=== PATIENT | male | born 1965 | race Two or more races ===

== ENCOUNTER 2017-04-10 11:07 | Emergency (ER) | payer MEDICAID ==
[~2017-04-10] VITALS: Ht 175.3 cm; Wt 74.0 kg
[2017-04-10] MEDS: KETOROLAC 60MG/2ML VIAL IM ONE (13:00)
[2017-04-10 14:10] VITALS: BP 138/84
== END 2017-04-10 13:43 | disposition home or self-care (01) ==
LOC: ER 13:02
DX: S46.912A Strain of unspecified muscle, fascia and tendon at shoulder and upper arm level, left arm, initial encounter (principal); R51 Headache; F17.210 Nicotine dependence, cigarettes, uncomplicated; V43.52XA Car driver injured in collision with other type car in traffic accident, initial encounter; Y93.89 Activity, other specified; Y92.488 Other paved roadways as the place of occurrence of the external cause
CPT/HCPCS: 73030; 96372; 99285; J1885

== ENCOUNTER 2017-05-01 10:51 | Emergency (ER) | payer MEDICAID ==
[~2017-05-01] VITALS: Ht 175.3 cm; Wt 77.0 kg
[2017-05-01] MEDS ORDERED: KETOROLAC 30MG/ML VIAL IM ONE (11:45)
[2017-05-01 12:05] VITALS: BP 133/82
== END 2017-05-01 12:25 | disposition home or self-care (01) ==
LOC: ER 11:49
DX: S99.911A Unspecified injury of right ankle, initial encounter (principal); V89.2XXA Person injured in unspecified motor-vehicle accident, traffic, initial encounter; Y93.9 Activity, unspecified; Y92.410 Unspecified street and highway as the place of occurrence of the external cause
CPT/HCPCS: 73610; 73630; 96372; 99284; J1885

== ENCOUNTER 2017-07-23 23:31 | Emergency (ER) | payer MEDICAID ==
[~2017-07-23] VITALS: Ht 175.3 cm; Wt 73.0 kg
[2017-07-24] MEDS ORDERED: ONDANSETRON HCL 4MG/2ML VIAL IV STA (01:02)
[2017-07-24] MEDS ORDERED: SODIUM CHLORIDE 0.9% 1,000 ML IV ONE (01:02)
[2017-07-24] MEDS ORDERED: ASPIRIN 325MG TABLET PO ONE (01:15)
[2017-07-24 01:23] LABS: BASOPHILS % 0.7 % (0.0-2.0); EOSINOPHILS % 0.3 % (0.0-5.0); HEMOGLOBIN. 15.1 g/dL (14.0-18.0); LYMPHOCYTES % 15.7 % (20.0-50.0); MEAN CORPUSCULAR HEMOGLOBIN 28.7 pg (28.0-32.0); MEAN CORPUSCULAR VOLUME 87.3 fL (80.0-94.0); MEAN PLATELET VOLUME 8.9 fl (7.4-10.4); MONOCYTES % 11.6 % (2.0-8.0); NEUTROPHILS % 71.7 % (40.0-76.0); PLATELET 256 x1000/uL (130-400); RED BLOOD CELL COUNT 5.27 mill/uL (4.7-6.1)
[2017-07-24 01:30] LABS: INR 1.1; PROTHROMBIN TIME 11.8 sec (9.4-11.6)
[2017-07-24 01:40] LABS: CARBON DIOXIDE 26 mEq/L (21-32); CHLORIDE 106 mEq/L (98-107); TROPONIN I < 0.02 ng/mL (0.00-0.04)
[2017-07-24] MEDS ORDERED: POTASSIUM CHLORIDE 20MEQ TABLET SR PO ONE (03:45)
[2017-07-24] MEDS ORDERED: ENOXAPARIN 80MG/0.8ML SYR SUBCUT SCH (04:30)
[2017-07-24] MEDS ORDERED: ONDANSETRON HCL 4MG/2ML VIAL IV ONE (04:45)
[2017-07-24] MEDS ORDERED: MORPHINE SULFATE 4 MG/ML CPJ (NOT FOR IM USE) IV ONE (04:45)
[2017-07-24 06:37] VITALS: BP 118/58
== END 2017-07-24 09:15 | disposition left against medical advice (07) ==
LOC: ER 23:31 → ENRESERV 07-24 07:40 → CANRESERV 07-24 07:40 → CANBEDREQ 07-24 08:53 → ER 07-24 09:15
DX: I24.9 Acute ischemic heart disease, unspecified (principal); E87.6 Hypokalemia; I10 Essential (primary) hypertension; I25.2 Old myocardial infarction; F17.200 Nicotine dependence, unspecified, uncomplicated; Z98.890 Other specified postprocedural states; Z79.82 Long term (current) use of aspirin
CPT/HCPCS: 36415; 71045; 80053; 83880; 84484; 85025; 85610; 87804; 93005; 96361; 96372; 96374; 96376; 99285; J1650; J2270; J2405; J7030; Z7610

== ENCOUNTER 2019-08-11 20:33 | Emergency (ER) | payer MEDICAID ==
[~2019-08-11] VITALS: Ht 175.3 cm; Wt 77.0 kg
[2019-08-11 21:32] VITALS: BP 120/83
== END 2019-08-11 21:50 | disposition left against medical advice (07) ==
LOC: ER 20:33
DX: Z53.21 Procedure and treatment not carried out due to patient leaving prior to being seen by health care provider (principal)

== ENCOUNTER 2019-10-29 01:58 | Inpatient (IN) | payer MEDICAID ==
[~2019-10-29] VITALS: Ht 175.3 cm; Wt 74.0 kg
[2019-10-29] MEDS ORDERED: NITROGLYCERIN 0.4MG TABLET SL SL ONE (02:45)
[2019-10-29 02:52] LABS: EOSINOPHILS % 3.9 % (0.0-5.0); HEMATOCRIT. 39.4 % (42.0-52.0); HEMOGLOBIN. 13.3 g/dL (14.0-18.0); LYMPHOCYTES % 37.2 % (20.0-50.0); MEAN CORPUSCULAR HEMOGLOBIN 29.8 pg (28.0-32.0); MEAN CORPUSCULAR VOLUME 88.4 fL (80.0-94.0); MEAN PLATELET VOLUME 9.6 fl (7.4-10.4); MONOCYTES % 8.1 % (2.0-8.0); NEUTROPHILS % 48.8 % (40.0-76.0); PLATELET 162 x1000/uL (130-400); RED BLOOD CELL COUNT 4.45 mill/uL (4.7-6.1); RED CELL DISTRIBUTION WIDTH 14.6 % (11.6-14.6)
[2019-10-29 02:55] LABS: CHLORIDE 108 mEq/L (98-107)
[2019-10-29] MEDS ORDERED: ACETAMINOPHEN 500MG TABLET PO ONE (03:30)
[2019-10-29] MEDS ORDERED: ONDANSETRON HCL 4MG/2ML INJ IV NR (03:45)
[2019-10-29] MEDS ORDERED: MORPHINE SULFATE 4 MG/ML CPJ (NOT FOR IM USE) IV NR (03:45)
[2019-10-29] MEDS ORDERED: ENOXAPARIN 80MG/0.8ML SYR SUBCUT SCH ×2 (04:00→05:30)
[2019-10-29 04:27] LABS: PARTIAL THROMBOPLASTIN TIME 24.8 sec (23.4-31.0)
[2019-10-29] MEDS: ASPIRIN 81MG TABLET PO SCH (15:05)
[2019-10-29] MEDS: CLOPIDOGREL 75MG TABLET PO SCH (15:05)
[2019-10-29 15:22] LABS: *AMPHETAMINES SCREEN URINE NEGATIVE (NEGATIVE); *BARBITURATES SCREEN URINE NEGATIVE (NEGATIVE); *BENZODIAZEPINES SCREEN URINE NEGATIVE (NEGATIVE); *COCAINE SCREEN URINE NEGATIVE (NEGATIVE); METHADONE URINE SCREEN NEGATIVE (NEGATIVE); OPIATES URINE SCREEN NEGATIVE (NEGATIVE); PHENCYCLIDINE URINE SCREEN NEGATIVE (NEGATIVE)
[2019-10-29 15:23] LABS: CANNABINOID URINE SCREEN PRESUMTIVE POSITIVE (NEGATIVE)
[2019-10-29 22:41] VITALS: BP 117/74
[2019-10-29 23:00] VITALS: BP 117/74
[2019-10-30] VITALS: BP 117/74
[2019-10-30] MEDS ORDERED: ATOR20TA65 MT (00:23)
[2019-10-30] MEDS ORDERED: ASPI-1497 MT (00:23)
[2019-10-30] MEDS ORDERED: CLOP75TA33 MT (00:23)
[2019-10-30] MEDS ORDERED: LISI10TA5 MT (00:23)
[2019-10-30 04:00] VITALS: BP 114/70
[2019-10-30] MEDS ORDERED: SODIUM CHLORIDE 0.9% 500 ML IV ONE (06:00)
[2019-10-30 06:12] LABS: BASOPHILS % 0.2 % (0.0-2.0); EOSINOPHILS % 4.7 % (0.0-5.0); HEMATOCRIT. 42.5 % (42.0-52.0); HEMOGLOBIN. 14.1 g/dL (14.0-18.0); LYMPHOCYTES % 43.6 % (20.0-50.0); MEAN CORPUSCULAR HEMOGLOBIN 29.6 pg (28.0-32.0); MEAN CORPUSCULAR VOLUME 89.2 fL (80.0-94.0); MEAN PLATELET VOLUME 10.3 fl (7.4-10.4); MONOCYTES % 10.9 % (2.0-8.0); NEUTROPHILS % 40.6 % (40.0-76.0); PLATELET 169 x1000/uL (130-400); RED BLOOD CELL COUNT 4.76 mill/uL (4.7-6.1)
[2019-10-30 06:55] LABS: VITAMIN B12 SERUM 540 pg/mL (211-911)
[2019-10-30 07:02] LABS: CHLORIDE 109 mEq/L (98-107)
[2019-10-30 07:08] LABS: TOTAL IRON BINDING CAPACITY 265 ug/dL (250-450)
[2019-10-30 07:11] LABS: T4 FREE 0.73 ng/dL (0.76-1.46)
[2019-10-30 08:00] VITALS: BP 121/73
[2019-10-30] MEDS: ASPIRIN 81MG TABLET PO SCH (10:34)
[2019-10-30] MEDS: CLOPIDOGREL 75MG TABLET PO SCH (10:34)
[2019-10-30 12:00] VITALS: BP 120/64
[2019-10-30] MEDS ORDERED: MORPHINE SULFATE 2 MG/ML CPJ (NOT FOR IM USE) IV PRN (12:30)
[2019-10-30 16:00] VITALS: BP 119/29
[2019-10-30 20:00] VITALS: BP 132/58
[2019-10-31] VITALS: BP 117/73
[2019-10-31 04:00] VITALS: BP 119/80
[2019-10-31 05:09] LABS: CHLORIDE 110 mEq/L (98-107)
[2019-10-31 05:47] LABS: BASOPHILS % 1.2 % (0.0-2.0); EOSINOPHILS % 5.1 % (0.0-5.0); HEMATOCRIT. 42.2 % (42.0-52.0); LYMPHOCYTES % 46.9 % (20.0-50.0); MEAN CORPUSCULAR HEMOGLOBIN 29.6 pg (28.0-32.0); MEAN CORPUSCULAR VOLUME 89.5 fL (80.0-94.0); MEAN PLATELET VOLUME 9.8 fl (7.4-10.4); MONOCYTES % 9.7 % (2.0-8.0); NEUTROPHILS % 37.1 % (40.0-76.0); PLATELET 158 x1000/uL (130-400); RED BLOOD CELL COUNT 4.72 mill/uL (4.7-6.1); RED CELL DISTRIBUTION WIDTH 15.1 % (11.6-14.6)
[2019-10-31] MEDS ORDERED: SODIUM CHLORIDE 0.45% 1,000 ML IV SCH (06:00)
[2019-10-31 08:00] VITALS: BP 120/78
[2019-10-31] MEDS: CLOPIDOGREL 75MG TABLET PO SCH (08:56)
[2019-10-31] MEDS: ASPIRIN 81MG TABLET PO SCH (08:56)
[2019-10-31] MEDS ORDERED: HEPARIN SODIUM 1,000 UNIT/1ML VIAL IV ONE (10:36)
[2019-10-31] MEDS ORDERED: NICARDIPINE 100MCG/ML 10ML VIAL (CATH LAB) IV ONE ×2 (10:36)
[2019-10-31 12:00] VITALS: BP 122/72
[2019-10-31] MEDS ORDERED: ASPIRIN/SOD BICARB/CITRIC ACID 324MG TAB EFF ONE (13:00)
[2019-10-31] MEDS ORDERED: LIDOCAINE HCL 1% 20ML VIAL (Pyxis) INJ ONE (13:07)
[2019-10-31] MEDS ORDERED: FENTANYL CITRATE/PF 50MCG/ML 2ML VIAL ONE (13:07)
[2019-10-31] MEDS ORDERED: MIDAZOLAM HCL 2 MG/2 ML VIAL ONE (13:07)
[2019-10-31] MEDS ORDERED: IODIXANOL 320MG/ML 100 ML BOTTLE IV ONE (13:08)
[2019-10-31] MEDS ORDERED: MORPHINE SULFATE 2 MG/ML CPJ (NOT FOR IM USE) IV PRN (13:45)
[2019-10-31] MEDS ORDERED: ONDANSETRON HCL 4MG/2ML INJ IV PRN (13:45)
[2019-10-31] MEDS ORDERED: ATROPINE SULFATE 1MG/10ML SYR IV PRN (13:45)
[2019-10-31] MEDS ORDERED: ACETAMINOPHEN 325MG TABLET PO PRN (13:45)
[2019-10-31] MEDS ORDERED: SODIUM CHLORIDE 0.45% 1,000 ML IV ONE (13:45)
[2019-10-31 15:25] VITALS: BP 123/86
== END 2019-10-31 15:20 | disposition home or self-care (01) | DRG 191 ==
LOC: ER 01:58 → 7EST 03:47 → CANRESERV 20:02 → ENRESERV 20:02
PROVIDERS: ADMIT Internal Medicine; ATTEND Internal Medicine
PROC: 4A023N7 Measurement of Cardiac Sampling and Pressure, Left Heart, Percutaneous Approach (ICD-10-PCS; principal; 2019-10-31)
PROC: B2111ZZ Fluoroscopy of Multiple Coronary Arteries using Low Osmolar Contrast (ICD-10-PCS; 2019-10-31)
PROC: B2151ZZ Fluoroscopy of Left Heart using Low Osmolar Contrast (ICD-10-PCS; 2019-10-31)
DX: I25.118 Atherosclerotic heart disease of native coronary artery with other forms of angina pectoris (principal); I42.9 Cardiomyopathy, unspecified; F17.210 Nicotine dependence, cigarettes, uncomplicated; I10 Essential (primary) hypertension; G40.909 Epilepsy, unspecified, not intractable, without status epilepticus; Z60.2 Problems related to living alone; Z20.828 Contact with and (suspected) exposure to other viral communicable diseases; Z95.5 Presence of coronary angioplasty implant and graft; I25.2 Old myocardial infarction; Z79.02 Long term (current) use of antithrombotics/antiplatelets; Z79.82 Long term (current) use of aspirin
CPT/HCPCS: 36415; 71045; 80048; 80053; 80305; 82607; 83540; 83550; 83735; 83880; 84439; 84443; 84484; 85025; 87635; 93005; 93458; 99285; C1769; C1887; C1893; J1644; J1650; J2250; J2270; J2405; J3010; J3490; Q9967

== ENCOUNTER 2020-10-23 11:58 | Emergency (ER) | payer MEDICAID ==
[~2020-10-23] VITALS: Ht 175.3 cm; Wt 74.0 kg
[~2020-10-23 11:58] MED LIST: ASPI-1497 MT; ATOR20TA65 MT; CLOP75TA33 MT; LISI20TA31 MT; TERB250T51 PO
[2020-10-23] MEDS ORDERED: ASPIRIN 325MG EC TABLET PO ONE (12:30)
[2020-10-23 12:36] LABS: BASOPHILS % 0.8 % (0.0-2.0); EOSINOPHILS % 3.4 % (0.0-5.0); HEMATOCRIT. 40.8 % (42.0-52.0); HEMOGLOBIN. 13.6 g/dL (14.0-18.0); LYMPHOCYTES % 35.6 % (20.0-50.0); MEAN CORPUSCULAR HEMOGLOBIN 29.2 pg (28.0-32.0); MEAN CORPUSCULAR VOLUME 87.3 fL (80.0-94.0); MONOCYTES % 10.3 % (2.0-8.0); NEUTROPHILS % 49.9 % (40.0-76.0); PLATELET 203 x1000/uL (130-400); RED BLOOD CELL COUNT 4.67 mill/uL (4.7-6.1); RED CELL DISTRIBUTION WIDTH 14.6 % (11.6-14.6)
[2020-10-23 12:42] LABS: CHLORIDE 107 mEq/L (98-107)
[2020-10-23] MEDS ORDERED: SODIUM CHLORIDE 0.9% 1,000 ML IV ONE (14:00)
[2020-10-23 14:25] LABS: CLARITY URINE CLEAR (CLEAR); COLOR URINE YELLOW (YELLOW); KETONES URINE NEGATIVE (NEGATIVE); LEUKOCYTE ESTERASE URINE NEGATIVE (NEGATIVE); NITRITE URINE NEGATIVE (NEGATIVE); OCCULT BLOOD URINE NEGATIVE (NEGATIVE); PH URINE 7.5 (4.5-8.0); PROTEIN URINE NEGATIVE (NEGATIVE); SPECIFIC GRAVITY URINE 1.008 (1.005-1.030); UROBILINOGEN URINE 0.2 E.U./dL (0.2-1.0)
[2020-10-23 14:43] VITALS: BP 128/78
[2020-10-23] MEDS ORDERED: NAPR-1176 PO (14:58)
[2020-10-23 14:59] LABS: *AMPHETAMINES SCREEN URINE NEGATIVE (NEGATIVE); *BARBITURATES SCREEN URINE NEGATIVE (NEGATIVE); *BENZODIAZEPINES SCREEN URINE NEGATIVE (NEGATIVE); *COCAINE SCREEN URINE NEGATIVE (NEGATIVE); METHADONE URINE SCREEN NEGATIVE (NEGATIVE); OPIATES URINE SCREEN NEGATIVE (NEGATIVE)
[2020-10-23 15:01] LABS: CANNABINOID URINE SCREEN PRESUMTIVE POSITIVE (NEGATIVE); PHENCYCLIDINE URINE SCREEN NEGATIVE (NEGATIVE)
== END 2020-10-23 15:23 | disposition home or self-care (01) ==
LOC: ER 11:58 → CANBEDREQ 18:13
DX: R07.89 Other chest pain (principal); I25.10 Atherosclerotic heart disease of native coronary artery without angina pectoris; I25.2 Old myocardial infarction; F12.10 Cannabis abuse, uncomplicated; Z79.82 Long term (current) use of aspirin; Z98.61 Coronary angioplasty status
CPT/HCPCS: 36415; 71045; 80053; 80305; 81003; 83880; 84484; 85025; 93005; 96360; 96361; 99285; J7030

== ENCOUNTER 2021-11-19 20:37 | Emergency (ER) | payer MEDICAID ==
[~2021-11-19] VITALS: Ht 175.3 cm; Wt 71.0 kg
[~2021-11-19 20:37] MED LIST changes: +NAPR-1176 PO
[2021-11-19 20:42] VITALS: BP 152/95
[2021-11-19 23:37] LABS: BASOPHILS % 0.8 % (0.0-2.0); EOSINOPHILS % 2.6 % (0.0-5.0); HEMATOCRIT. 39.9 % (42.0-52.0); HEMOGLOBIN. 13.4 g/dL (14.0-18.0); LYMPHOCYTES % 39.5 % (20.0-50.0); MEAN CORPUSCULAR HEMOGLOBIN 29.4 pg (28.0-32.0); MEAN CORPUSCULAR VOLUME 87.8 fL (80.0-94.0); MEAN PLATELET VOLUME 9.3 fl (7.4-10.4); MONOCYTES % 7.5 % (2.0-8.0); NEUTROPHILS % 49.6 % (40.0-76.0); PLATELET 210 x1000/uL (130-400); RED BLOOD CELL COUNT 4.55 mill/uL (4.7-6.1)
[2021-11-19] MEDS ORDERED: ASPIRIN 81MG TABLET PO ONE (23:45)
[2021-11-19] MEDS ORDERED: NITROGLYCERIN 0.4MG TABLET SL SL PRN (23:45)
[2021-11-19 23:49] LABS: CHLORIDE 108 mEq/L (98-107)
== END 2021-11-20 00:45 | disposition left against medical advice (07) ==
LOC: ER 20:37
DX: R07.89 Other chest pain (principal); M79.601 Pain in right arm; I25.2 Old myocardial infarction; Z98.890 Other specified postprocedural states
CPT/HCPCS: 36415; 71045; 80053; 83880; 84484; 85025; 85379; 93005; 99285

== ENCOUNTER 2022-02-11 00:11 | Emergency (ER) | payer MEDICAID, OTHER ==
[~2022-02-11] VITALS: Ht 175.3 cm; Wt 72.9 kg
[~2022-02-11 00:11] MED LIST changes: -TERB250T51 PO; +TERB250T88 PO
[2022-02-11 00:29] VITALS: BP 117/72
== END 2022-02-11 11:32 | disposition left against medical advice (07) ==
LOC: ER 00:11
DX: Z53.21 Procedure and treatment not carried out due to patient leaving prior to being seen by health care provider (principal)
CPT/HCPCS: 93005

== ENCOUNTER 2023-02-16 02:20 | Emergency (ER) | payer OTHER ==
[~2023-02-16] VITALS: Ht 175.3 cm; Wt 70.6 kg
[2023-02-16 02:44] VITALS: BP 154/93; PULSE 60; RESP 18; TEMP 98.5; O2SAT 99
== END 2023-02-16 05:00 | disposition left against medical advice (07) ==
LOC: ER 02:20
DX: Z53.21 Procedure and treatment not carried out due to patient leaving prior to being seen by health care provider (principal)
CPT/HCPCS: 99281

== ENCOUNTER 2023-02-18 00:55 | Emergency (ER) | payer OTHER ==
[~2023-02-18] VITALS: Ht 175.3 cm; Wt 71.0 kg
[2023-02-18 01:13] VITALS: BP 135/84; PULSE 52; RESP 16; TEMP 98.1; O2SAT 98
== END 2023-02-18 03:26 | disposition left against medical advice (07) ==
LOC: ER 00:55
DX: Z53.21 Procedure and treatment not carried out due to patient leaving prior to being seen by health care provider (principal)
CPT/HCPCS: 99281

== ENCOUNTER 2023-02-21 01:24 | Emergency (ER) | payer OTHER ==
[~2023-02-21] VITALS: Ht 175.3 cm; Wt 71.0 kg
[2023-02-21 01:28] VITALS: BP 165/87; O2SAT 100
[2023-02-21] MEDS ORDERED: NAPR-681 PO (04:07)
[2023-02-21 04:33] VITALS: PULSE 66; RESP 18; TEMP 98.6
== END 2023-02-21 04:34 | disposition home or self-care (01) ==
LOC: ER 01:24
DX: S39.012A Strain of muscle, fascia and tendon of lower back, initial encounter (principal); M25.511 Pain in right shoulder; V49.49XA Driver injured in collision with other motor vehicles in traffic accident, initial encounter; Y93.89 Activity, other specified; Y92.89 Other specified places as the place of occurrence of the external cause; Y99.8 Other external cause status
CPT/HCPCS: 72100; 73030; 99284

== ENCOUNTER 2024-01-04 22:56 | Emergency (ER) | payer OTHER ==
[~2024-01-04] VITALS: Ht 175.3 cm; Wt 71.0 kg
[~2024-01-04 22:56] MED LIST changes: +NAPR-681 PO
[2024-01-04 23:26] VITALS: BP 156/93; PULSE 56; RESP 16; TEMP 98.1; O2SAT 98
[2024-01-05] MEDS ORDERED: HYDR453.3 TP (00:15)
== END 2024-01-05 01:58 | disposition home or self-care (01) ==
LOC: ER 22:56
DX: K64.4 Residual hemorrhoidal skin tags (principal); E78.00 Pure hypercholesterolemia, unspecified; Z79.899 Other long term (current) drug therapy; Z79.82 Long term (current) use of aspirin; Z86.59 Personal history of other mental and behavioral disorders; Z98.890 Other specified postprocedural states
CPT/HCPCS: 99282

== ENCOUNTER 2025-03-04 20:30 | Emergency (ER) | payer OTHER ==
[~2025-03-04] VITALS: Ht 175.3 cm; Wt 76.3 kg
[~2025-03-04 20:30] MED LIST changes: +HYDR453.3 TP
[2025-03-04 20:38] VITALS: O2SAT 99
[2025-03-04 21:27] VITALS: BP 148/82; PULSE 60; RESP 18; TEMP 36.7; O2SAT 100
[2025-03-05] MEDS ORDERED: KETO-98 LEFTEYE (23:36)
[2025-03-05] MEDS ORDERED: KETO5DRO80 LEFTEYE (23:36)
== END 2025-03-04 23:28 | disposition left against medical advice (07) ==
LOC: ER 20:30
DX: H57.12 Ocular pain, left eye (principal); R51.9 Headache, unspecified; E78.00 Pure hypercholesterolemia, unspecified; I25.2 Old myocardial infarction; Z53.21 Procedure and treatment not carried out due to patient leaving prior to being seen by health care provider

== ENCOUNTER 2025-03-05 21:54 | Emergency (ER) | payer OTHER ==
[~2025-03-05] VITALS: Ht 175.3 cm; Wt 76.0 kg
[2025-03-05 22:09] VITALS: O2SAT 100
[2025-03-05] MEDS ORDERED: KETO5DRO80 LEFTEYE (23:36)
[2025-03-05] MEDS ORDERED: KETO-98 LEFTEYE (23:36)
[2025-03-06 00:02] VITALS: BP 142/79; PULSE 83; RESP 20; TEMP 36.8; O2SAT 100
== END 2025-03-05 23:55 | disposition home or self-care (01) ==
LOC: ER 21:54
DX: H57.12 Ocular pain, left eye (principal); Z79.82 Long term (current) use of aspirin; Z79.899 Other long term (current) drug therapy
CPT/HCPCS: 99283